=== PATIENT | male | born 1975 | race Caucasian/White ===

== ENCOUNTER 2022-10-14 15:14 | Outpatient (CLI) | payer OTHER, SELFPAY | END 2022-10-14 15:15 | disposition home or self-care (01) | PROVIDERS: PCP Family Medicine; Visit Provider Family Medicine | DX: Z00.00 Encounter for general adult medical examination without abnormal findings (principal); I10 Essential (primary) hypertension; Z13.6 Encounter for screening for cardiovascular disorders; Z11.59 Encounter for screening for other viral diseases; Z83.3 Family history of diabetes mellitus | CPT/HCPCS: 80053; 80061; 86803 ==

== ENCOUNTER 2022-12-15 14:17 | Outpatient (CLI) | payer OTHER, SELFPAY | END 2022-12-15 14:18 | disposition home or self-care (01) | LOC: FRMREF 14:17 | PROVIDERS: PCP Family Medicine; Visit Provider Family Medicine | DX: I10 Essential (primary) hypertension (principal); R79.89 Other specified abnormal findings of blood chemistry | CPT/HCPCS: 80048 ==

== ENCOUNTER 2023-02-13 08:51 | Outpatient (CLI) | payer OTHER, SELFPAY ==
--- NOTE | 2023-02-13 10:35 | W.ANESCHARGE ---
Anesthesia Charges Start Date/Time Anesthesia Start Date: 02/13/23 Anesthesia Start Time: 10:04 Stop Date/Time Anesthesia Stop Date: 02/13/23 Anesthesia Stop Time: 10:30
--- NOTE | 2023-02-13 10:43 | W.ANESCHARGE ---
Anesthesia Charges Start Date/Time Anesthesia Start Date: 02/13/23 Anesthesia Start Time: 10:04 Stop Date/Time Anesthesia Stop Date: 02/13/23 Anesthesia Stop Time: 10:30
== END 2023-02-13 08:52 | disposition home or self-care (01) ==
LOC: OP CLINIC 08:52
PROVIDERS: PCP Family Medicine; Visit Provider Surgery
DX: Z12.11 Encounter for screening for malignant neoplasm of colon (principal)
CPT/HCPCS: 00811; 00812; 45378; J2704

== ENCOUNTER 2023-10-31 07:02 | Outpatient (CLI) | payer OTHER, SELFPAY | END 2023-10-31 07:03 | disposition home or self-care (01) | PROVIDERS: PCP Family Medicine; Visit Provider Family Medicine | DX: Z00.00 Encounter for general adult medical examination without abnormal findings (principal); I10 Essential (primary) hypertension; R79.89 Other specified abnormal findings of blood chemistry; E66.01 Morbid (severe) obesity due to excess calories; Z13.6 Encounter for screening for cardiovascular disorders; Z13.1 Encounter for screening for diabetes mellitus | CPT/HCPCS: 80053; 80061; 82043; 82570 ==

== ENCOUNTER 2024-11-20 09:49 | Outpatient (CLI) | payer OTHER, SELFPAY | END 2024-11-20 09:50 | disposition home or self-care (01) | PROVIDERS: PCP Family Medicine; Visit Provider Family Medicine | DX: Z00.00 Encounter for general adult medical examination without abnormal findings (principal); I10 Essential (primary) hypertension; R63.2 Polyphagia; E66.01 Morbid (severe) obesity due to excess calories | CPT/HCPCS: 80053; 80061; 82043; 82570; G0103 ==

== ENCOUNTER 2024-12-17 13:00 | Outpatient (CLI) | payer OTHER, SELFPAY ==
--- NOTE | 2024-12-31 12:21 | W.PM.SLEEP ---
Sleep Study Details Details Interpreting Provider: Julio Date of Sleep Study: 12/17/24 Sleep Study Details: STUDY TYPE:? Home unattended ? BMI:? 44.6 ORDERING PROVIDER:Pierre Shane INDICATION:? Concern for sleep apnea ? SLEEP SUMMARY:? 448 minutes monitored RESPIRATORY SUMMARY:? AHI 51.3 per rule 1A, 44.3 per CMS guideline. Low oxygen 79 6.9% of study oxygen less than 90% Snoring 95.9% PERIODIC LIMB MOVEMENTS OF SLEEP:? Not recorded CARDIAC:? Range 56-113, mean 79.8 beats per minute IMPRESSION:? Severe obstructive sleep apnea RECOMMENDATION: AutoSet CPAP pressure 4-17 with close follow-up.
== END 2024-12-17 13:01 | disposition home or self-care (01) ==
PROVIDERS: PCP Family Medicine; Visit Provider Family Medicine
DX: G47.33 Obstructive sleep apnea (adult) (pediatric) (principal)
CPT/HCPCS: 95806